=== PATIENT | male | born 1960 | race African-American/Black ===

== ENCOUNTER 2020-09-25 21:32 | Observation (INO) | payer BC ==
[2020-09-26 00:56] LABS: BASO % 0.3 % (0-2.0); EOS % 0.5 % (0-4.5); HEMATOCRIT 42.6 % (35.4-49); HEMOGLOBIN 14.2 GM/dL (11.7-16.9); LYMPH % 16.1 % (8-40); MCH 33.7 pg (25.7-33.7); MCHC 33.3 g/dl (32.0-35.9); MEAN PLT VOLUME 10.5 fl (7.5-11.1); MONO % 8.2 % (3.8-10.2); NEUT % 74.9 % (42.8-82.8); PLATELET COUNT 259 K/MM3 (134-434); RBC 4.22 M/mm3 (4.00-5.60); WHITE BLOOD COUNT 11.3 K/mm3 (4.0-10.0)
[2020-09-26 01:16] LABS: ALBUMIN 3.7 g/dl (3.4-5.0); BLOOD UREA NITROGEN 15.2 mg/dL (7-18); CALCIUM 9.9 mg/dL (8.5-10.1)
[2020-09-26 01:20] LABS: CREATININE 1.6 mg/dL (0.55-1.3)
[2020-09-26 01:21] LABS: BILIRUBIN,TOTAL 0.3 mg/dL (0.2-1); TOT PROT 7.5 g/dl (6.4-8.2)
[2020-09-26 01:23] LABS: N-TERMINAL BNP 470.5 pg/ml (5-125)
[2020-09-26] MEDS ORDERED: ASPIRIN 81 MG CHEWABLE TABLETS PO ONE (01:43)
[2020-09-26 06:00] LABS: BASO % 0.4 % (0-2.0); EOS % 1.3 % (0-4.5); HEMATOCRIT 40.8 % (35.4-49); HEMOGLOBIN 13.6 GM/dL (11.7-16.9); LYMPH % 20.3 % (8-40); MCH 33.9 pg (25.7-33.7); MCHC 33.3 g/dl (32.0-35.9); MEAN CELL VOLUME 101.7 fl (80-96); MEAN PLT VOLUME 9.8 fl (7.5-11.1); MONO % 9.3 % (3.8-10.2); NEUT % 68.7 % (42.8-82.8); PLATELET COUNT 225 K/MM3 (134-434); RBC 4.01 M/mm3 (4.00-5.60); RDW 12.9 % (11.9-15.9); WHITE BLOOD COUNT 9.8 K/mm3 (4.0-10.0)
[2020-09-26 06:18] LABS: CALCIUM 9.3 mg/dL (8.5-10.1)
[2020-09-26 06:19] LABS: ALBUMIN 3.2 g/dl (3.4-5.0); BLOOD UREA NITROGEN 16.1 mg/dL (7-18); MAGNESIUM 2.1 mg/dL (1.8-2.4)
[2020-09-26 06:22] LABS: CREATININE 1.5 mg/dL (0.55-1.3)
[2020-09-26 06:23] LABS: BILIRUBIN,TOTAL 0.5 mg/dL (0.2-1); TOT PROT 6.5 g/dl (6.4-8.2)
[2020-09-26] MEDS ORDERED: SODIUM CHLORIDE 1,000 ML IV SCH (07:15)
[2020-09-26] MEDS ORDERED: ASPIRIN 81 MG CHEWABLE TABLETS ONE (08:30)
[2020-09-26 12:26] VITALS: BMI 39.6
[2020-09-26] MEDS: HEPARIN NA (PORCINE) 5,000 UNITS/ML 1ML VIAL SQ SCH ×2 (13:00→21:42)
[2020-09-26] MEDS: SODIUM CHLORIDE 0.45% 1,000 ML IV SCH (13:36)
[2020-09-26 20:52] LABS: URINE APPEARANCE CLEAR; URINE BILIRUBIN NEGATIVE (NEGATIVE); URINE COLOR YELLOW; URINE GLUCOSE (UA) NEGATIVE (NEGATIVE); URINE KETONE NEGATIVE (NEGATIVE); URINE LEUK ESTERASE NEGATIVE (NEGATIVE); URINE NITRITE NEGATIVE (NEGATIVE); URINE PROTEIN NEGATIVE (NEGATIVE); URINE UROBILINOGEN 0.2 mg/dL (0.2-1.0)
[2020-09-26] MEDS ORDERED: ROSUVASTATIN CA 5 MG TABLET (FP) PO SCH (22:00)
[2020-09-27 07:18] LABS: BLOOD UREA NITROGEN 15.5 mg/dL (7-18); CALCIUM 8.8 mg/dL (8.5-10.1); MAGNESIUM 2.1 mg/dL (1.8-2.4)
[2020-09-27 07:21] LABS: CREATININE 1.2 mg/dL (0.55-1.3); PHOSPHOROUS 3.1 mg/dL (2.5-4.9)
[2020-09-27] MEDS ORDERED: ASPIRIN 81 MG CHEWABLE TABLETS PO SCH (10:00)
[2020-09-27] MEDS ORDERED: REGADENOSON 0.4 MG/5 ML PRE-FILLED SYRINGE IVPUSH ONE ×2 (10:05→10:15)
[2020-09-27] MEDS: HEPARIN NA (PORCINE) 5,000 UNITS/ML 1ML VIAL SQ SCH (11:30)
[2020-09-27] MEDS: SODIUM CHLORIDE 0.45% 1,000 ML IV SCH (11:30)
[2020-09-27 14:26] VITALS: BP 130/62; PULSE 73; TEMP 98
== END 2020-09-27 17:00 | disposition home or self-care (01) ==
LOC: JER 21:32 → JERBED 09-26 00:55 → INTOOBSV 09-26 00:55 → J4S 09-26 11:00
PROVIDERS: ADMIT Internal Medicine; ATTEND Family Medicine
PROC: 3E013GC Introduction of Other Therapeutic Substance into Subcutaneous Tissue, Percutaneous Approach (ICD-10-PCS; principal; 2020-09-26)
DX: R55 Syncope and collapse (principal); R77.8 Other specified abnormalities of plasma proteins; R94.31 Abnormal electrocardiogram [ECG] [EKG]; I10 Essential (primary) hypertension; E78.5 Hyperlipidemia, unspecified; S00.01XA Abrasion of scalp, initial encounter; S50.312A Abrasion of left elbow, initial encounter; S50.311A Abrasion of right elbow, initial encounter; W19.XXXA Unspecified fall, initial encounter; Y93.89 Activity, other specified; Y92.018 Other place in single-family (private) house as the place of occurrence of the external cause
CPT/HCPCS: 36415; 70450-TC; 71046-TC-FY; 71250-TC; 72125-TC; 78452-TC; 80048; 80053; 80061; 81003; 82436; 82550; 82553; 82570; 82962; 83036; 83721; 83735; 83880; 84100; 84133; 84300; 84443; 84484; 85025; 93005; 93010; 93017; 93306-TC; 93880-TC; 99285-25; A9502; C9803; G0378; J1644; J2785; U0003; U0005

== ENCOUNTER 2021-09-04 13:40 | Inpatient (IN) | payer BC ==
[2021-09-04] MEDS ORDERED: SODIUM CHLORIDE 0.9% 500 ML INFUS.BAG IV ONE ×2 (14:28→17:40)
[2021-09-04 14:55] LABS: BASO % 0.5 % (0-2.0); EOS % 0.7 % (0-4.5); HEMATOCRIT 42.4 % (35.4-49); HEMOGLOBIN 14.1 GM/dL (11.7-16.9); LYMPH % 17.5 % (8-40); MCH 34.1 pg (25.7-33.7); MCHC 33.2 g/dl (32.0-35.9); MEAN CELL VOLUME 102.6 fl (80-96); MEAN PLT VOLUME 10.5 fl (7.5-11.1); MONO % 9.7 % (3.8-10.2); NEUT % 71.6 % (42.8-82.8); PLATELET COUNT 223 10^3/uL (134-434); RBC 4.13 M/mm3 (4.00-5.60); RDW 13.5 % (11.9-15.9); WHITE BLOOD COUNT 7.1 K/mm3 (4.0-10.0)
[2021-09-04 15:11] LABS: CHLORIDE 103 mmol/L (98-107); SODIUM 138 mmol/L (136-145)
[2021-09-04 15:12] LABS: CALCIUM 9.2 mg/dL (8.5-10.1)
[2021-09-04 15:13] LABS: ALBUMIN 3.6 g/dl (3.4-5.0); ANION GAP 6 MMOL/L (8-16); CO2 29 mmol/L (21-32); GLUCOSE,RANDOM 100 mg/dL (74-106); INR 0.98 (0.83-1.09); MAGNESIUM 2.3 mg/dL (1.8-2.4); PROTHROMBIN TIME (PATIENT) 11.3 SEC (9.7-13.0)
[2021-09-04 15:16] LABS: ACTIVATED PTT 33.5 SECONDS (25.2-36.5); CREATININE 1.6 mg/dL (0.55-1.3); SGOT/AST 29 U/L (15-37); SGPT/ALT 46 U/L (13-61)
[2021-09-04 15:17] LABS: BILIRUBIN,TOTAL 0.9 mg/dL (0.2-1)
[2021-09-04 15:18] LABS: TOT PROT 7.2 g/dl (6.4-8.2)
[2021-09-04 15:19] LABS: ALK PHOS 84 U/L (45-117)
[2021-09-04] MEDS ORDERED: ACETAMINOPHEN 325 MG TABLET (FP) PO PRN (16:27)
[2021-09-04] MEDS ORDERED: FUROSEMIDE 40 MG/4 ML INJECTABLE VIAL IVPUSH ONE (16:29)
[2021-09-04] MEDS ORDERED: FUROSEMIDE 40 MG/4 ML INJECTABLE VIAL ONE (16:41)
[2021-09-04] MEDS ORDERED: ASPIRIN 81 MG CHEWABLE TABLETS ONE (16:41)
[2021-09-04 16:50] LABS: CHOLESTEROL 244 mg/dL (50-200)
[2021-09-04 16:52] LABS: LDL CHOLESTEROL (ONLY SJRH) 162 mg/dL (5-100); TRIGLYCERIDES 98 mg/dL (0-150)
[2021-09-04 16:53] LABS: HDL CHOLESTEROL 60 mg/dL (40-60)
[2021-09-04] MEDS: ASPIRIN 81 MG CHEWABLE TABLETS PO SCH (17:14)
[2021-09-04] MEDS ORDERED: METOPROLOL TARTRATE 5 MG/5 ML VIAL IVPUSH ONE (17:38)
[2021-09-04] MEDS ORDERED: METOPROLOL TARTRATE 5 MG/5 ML VIAL ONE (17:47)
[2021-09-04] MEDS ORDERED: ADENOSINE 6 MG/2 ML VIAL IVPUSH ONE (18:20)
[2021-09-04] MEDS ORDERED: dilTIAZem HCL 30 MG TABLET ONE (19:38)
[2021-09-04] MEDS: dilTIAZem HCL 30 MG TABLET PO SCH (19:40)
[2021-09-04] MEDS ORDERED: HEPARIN NA (PORCINE) 5,000 UNITS/ML 1ML VIAL SQ SCH (22:00)
[2021-09-04] MEDS ORDERED: HEPARIN NA (PORCINE) 5,000 UNITS/ML 1ML VIAL ONE (22:59)
[2021-09-04] MEDS: ROSUVASTATIN CA 10 MG TABLET PO SCH (23:06)
[2021-09-05] MEDS ORDERED: APIXABAN 5 MG TABLET PO ONE (00:54)
[2021-09-05] MEDS ORDERED: APIXABAN 5 MG TABLET ONE ×3 (01:22→21:57)
[2021-09-05] MEDS ORDERED: dilTIAZem HCL 30 MG TABLET ONE ×2 (01:22→06:48)
[2021-09-05] MEDS: dilTIAZem HCL 30 MG TABLET PO SCH ×2 (01:33→06:56)
[2021-09-05] MEDS: LACTATED RINGERS SOLUTION 1,000 ML/1,000 ML INFUS.BAG IV SCH (01:33)
[2021-09-05 08:35] LABS: CHLORIDE 106 mmol/L (98-107); SODIUM 142 mmol/L (136-145)
[2021-09-05 08:37] LABS: CALCIUM 8.7 mg/dL (8.5-10.1)
[2021-09-05 08:38] LABS: ALBUMIN 3.1 g/dl (3.4-5.0); ANION GAP 5 MMOL/L (8-16); BLOOD UREA NITROGEN 14.5 mg/dL (7-18); CO2 30 mmol/L (21-32); GLUCOSE,RANDOM 112 mg/dL (74-106)
[2021-09-05 08:41] LABS: CREATININE 1.5 mg/dL (0.55-1.3); SGOT/AST 29 U/L (15-37); SGPT/ALT 40 U/L (13-61)
[2021-09-05 08:42] LABS: BILIRUBIN,TOTAL 0.9 mg/dL (0.2-1); TOT PROT 6.3 g/dl (6.4-8.2)
[2021-09-05 08:43] LABS: ALK PHOS 72 U/L (45-117)
[2021-09-05] MEDS ORDERED: ASPIRIN 81 MG CHEWABLE TABLETS ONE (10:32)
[2021-09-05] MEDS: APIXABAN 5 MG TABLET PO SCH ×2 (11:40→21:59)
[2021-09-05] MEDS: ASPIRIN 81 MG CHEWABLE TABLETS PO SCH (11:40)
[2021-09-05] MEDS: ROSUVASTATIN CA 10 MG TABLET PO SCH (21:59)
[2021-09-06 01:18] VITALS: BMI 41.2
[2021-09-06] MEDS ORDERED: DIGOXIN 0.25 MG TABLET PO ONE ×2 (09:28→12:15)
[2021-09-06] MEDS: APIXABAN 5 MG TABLET PO SCH ×2 (10:30→21:24)
[2021-09-06] MEDS: ASPIRIN 81 MG CHEWABLE TABLETS PO SCH (10:30)
[2021-09-06] MEDS: LACTATED RINGERS SOLUTION 1,000 ML/1,000 ML INFUS.BAG IV SCH (17:28)
[2021-09-06] MEDS: ROSUVASTATIN CA 10 MG TABLET PO SCH (21:24)
[2021-09-07 05:57] VITALS: PULSE 66
[2021-09-07] MEDS: ASPIRIN 81 MG CHEWABLE TABLETS PO SCH (09:32)
[2021-09-07] MEDS: APIXABAN 5 MG TABLET PO SCH (09:32)
[2021-09-07 11:39] VITALS: BP 133/76; TEMP 97.4
== END 2021-09-07 15:28 | disposition home or self-care (01) | DRG 309 ==
LOC: JER 13:40 → JERBED 14:14 → J4W 09-06 01:29
PROVIDERS: ADMIT Family Medicine; ATTEND Family Medicine
DX: I48.92 Unspecified atrial flutter (principal); N17.9 Acute kidney failure, unspecified; Z68.41 Body mass index [BMI] 40.0-44.9, adult; E78.5 Hyperlipidemia, unspecified; R91.8 Other nonspecific abnormal finding of lung field; R00.0 Tachycardia, unspecified; I27.20 Pulmonary hypertension, unspecified; I12.9 Hypertensive chronic kidney disease with stage 1 through stage 4 chronic kidney disease, or unspecified chronic kidney disease; N18.9 Chronic kidney disease, unspecified; E66.9 Obesity, unspecified
CPT/HCPCS: 0241U-QW; 36415; 71045-TC-FY; 71275-TC; 76775-TC; 80053; 80061; 83036; 83735; 83880; 84155; 84165; 84439; 84443; 84484; 85025; 85379; 85610; 85730; 86850; 86900; 86901; 93005; 93010; 93306-TC; 99291; J1644; Q9967